=== PATIENT | male | born 1980 | race Caucasian/White ===

== ENCOUNTER → 2016-07-26 | Outpatient (CLI) | payer BC ==
--- NOTE | 2016-07-26 15:06 | RADIOLOGY REPORT PS360 ---
EXAM: LUMBAR SPINE 5 VIEWS HISTORY: LOW BACK PAIN ORDERING PHYSICIAN: Lenin Davis MD PATIENT AGE: 35 years COMPARISON: None FINDINGS: Normal alignment. No fracture or dislocation. No lytic or blastic change. There is mild degenerative disc disease at L4-L5. No facet arthritic change evident IMPRESSION: Mild degenerative disc disease L4-5
== END ==
LOC: RAD 07:21
DX: M54.5 Low back pain (principal)

== ENCOUNTER 2017-01-05 09:09 | Emergency (ER) | payer BC ==
[~2017-01-05] VITALS: Ht 182.9 cm; Wt 97.5 kg
--- OUTSIDE RECORDS SUMMARY | 2017-01-05 09:16 | External Medical Summary Rpt | CCD ---
Author Author [employer] Organization [employer] Address Unknown Phone Unavailable Purpose Continuity of Care Document - through 2016
--- OUTSIDE RECORDS SUMMARY | 2017-01-05 09:16 | External Medical Summary Rpt | CCD ---
Author Author REYMUNDO Address Unknown Phone [email or web address] Purpose Continuity of Care Document - through 2016
--- OUTSIDE RECORDS SUMMARY | 2017-01-05 09:16 | External Medical Summary Rpt | CCD ---
Author Author REYMUNDO Address Unknown Phone Purpose Continuity of Care Document - through 2016
--- OUTSIDE RECORDS SUMMARY | 2017-01-05 09:17 | External Medical Summary Rpt ---
Author Author REYMUNDO Tobias, [employer] Organization [employer] Address Unknown Phone Unavailable
--- OUTSIDE RECORDS SUMMARY | 2017-01-05 09:17 | External Medical Summary Rpt | CCD ---
Author Author , REYMUNDO DWYER Address Unknown Phone [email or web address] Immunization Name Date Rout CVX Reac Dose Comm Prov Is Faci e tion ent ider Refu lity Give sed n Hep 10-2 8 999 Hist H201 No H201 B, 9- oric ped/ al adol Info rmat ion - Sour ce Unsp ecif ied Hep 05-1 8 999 Hist H201 No H201 B, 4-20 oric ped/ 01 al adol Info rmat ion - Sour ce Unsp ecif ied Hep 04-1 8 999 Hist H201 No H201 B, 2-20 oric ped/ 01 al adol Info rmat ion - Sour ce Unsp ecif ied Td 04-1 9 999 Hist H201 No H201 (mirna 2-20 oric lt), 01 al Info adso rmat rbed ion - Sour ce Unsp ecif ied
--- OUTSIDE RECORDS SUMMARY | 2017-01-05 09:17 | External Medical Summary Rpt | CCD ---
Author Author , REYMUNDO DWYER Address Unknown Phone [email or web address] Immunization Name Date Rout CVX Reac Dose [...]
--- NOTE | 2017-01-05 09:27 | Urgent Treatment Center Report ---
See Addendum History of Present Issue Date/Time Seen by Provider 01/05/17 0915 Visit Reason Pt arrived:Walked Presenting Problem:RIGHT LOW BACK PAIN RAD DOWN RIGHT LEG BEGAN YESTERDAY, DENIES INJURY Location if Accident: Onset of symptoms date/time:/ or onset unknown for:MEDICAL HX UNKNOWN Have you (or family members/close friends) recently traveled outside the [place]? N If Yes, where/when: Have you had exposure to infectious disease within the past month? TB? Other? Specify: Here w/ mom (who is driving) c/o right sided low back pain radiating down right leg. Hx of "back strains" in the past. "Everytime I try to start getting in shape and being more active again, this happens". According to chart, saw Dr. Davis earlier this year for similiar symptoms. lumbar spine showed mild degenerative changes L4-L5. Was also treated for similiar symptoms in 2008 at which time it appears he had physical therapy. Reporting back "felt tight" last 1-2 weeks so patient has started trying to be more active. Walking more while in the [employer], stretching here and there. However yesterday, lifted push mower out of the truck. While mowing, started to notice radiating pain into right leg but continued to mow and lift mower back into truck when finished. Pain slowly worsened. Ibuprofen last night at 1999 didn't really help. Pain currently 810. primarily c/o burning sensation from right buttock radiating to right heel. "some" numbness sensation only in right foot. Able to get "somewhat" comfortable in anguiano position or while standing ( "just not too long"). Sitting is most uncomfortable. Denies urinary or bowel incontinence, weakness, saddle paresthesia, fever. Source patient Exam Limitations clinical condition (pain) ALLERGIES Coded Allergies: No Known Drug Allergies (09/21/15) History Medical History General Angina: No [place]: No Hypertension? No Hyperlipidemia? No CHF? No COPD? No Asthma? No CVA? No Seizures? No Diabetes? No GB Disease: No MRSA? No TB? No Cancer? No Immunization HX DT/Tetanus 06/23/05 Surgical Hx Previous Surgery?Y HERNIA REPAIR Social History Smoking Hx Smoker: Current Every Day Smoker Tobacco: Yes Type Cigarettes Packs/day < 1 Pack Alcohol Alcohol: No Review of Systems All Other Systems Reviewed and Negative Constitutional see HPI, denies malaise Respiratory denies shortness of breath Cardiovascular denies chest pain Gastrointestinal see HPI, denies abdominal pain, denies nausea Genitourinary see HPI. Musculoskeletal see HPI, denies joint swelling, denies neck pain Skin denies change in color, denies lesions, denies lumps Psychiatric/Neurological see HPI Physical Exam Vital Signs Vital Signs Date Time Temp Pulse Resp B/P Pulse O2 O2 Flow FiO2 Ox Delivery Rate 01/05 943 18 01/05 917 98.8 100 18 154/95 98 General Appearance moderate distress (appears uncomfortable), ambulated into clinic, slightly kyphotic positioning, hand on right buttock; resting in left anguiano position on table; slow to change positions for exam; grimicing and deep breathing w/ position changes Neck non-tender, supple, full range of motion Respiratory Status No: respiratory distress. Cardiovascular no peripheral edema Peripheral Pulses Pulses normal Yes (DP/PT) Back normal inspection, no vertebral tenderness, bowel/bladder continent, strt leg raising(R)-ABNL (15 degrees), gait abnormality, strt leg raising(L)-NML, TTP only at right SI joint, limited spinal ROM d/t pain Extremities non-tender (BLE), normal range of motion (BLE) Strength 5 Lower Ext (L), 5 Lower Ext (R) Neurologic alert, no motor/sensory deficits, oriented x 3 Reflexes Reflexes normal Yes (patellar) Skin normal color, warm/dry Medical Decision Making LABS/Meds/Orders Pt receiving controlled substance in ED? No Results/Orders Current Medication Orders Sig/Christina Start time Last Medication Dose Route Stop Time Status Admin Diphtheria/Pertussis/ 0 .STK-MED ONE 01/05 1007 DC Tetanus Vacc IM Orphenadrine Citrate 0 .STK-MED ONE 01/05 931 DC .ROUTE Ketorolac 60 MG ONCE ONE 01/05 930 DC 01/05 Tromethamine IM 01/05 Ketorolac 0 .STK-MED ONE 01/05 930 DC Tromethamine .ROUTE Orphenadrine Citrate 60 MG ONCE ONE 01/05 930 DC 01/05 IM 01/05 XRAY/CT/US XRAY/CT/US XRAY L-spine XR interpretation by reviewed by me (w/ Dr. Faustin, DAVE IRAHETA) Xray Results no acute findings Departure Departure Time of Disposition 1024 Disposition DC Home or Self Care(routine) Clinical Impression Primary Impression: Back pain with right-sided sciatica Condition STABLE Referrals Preston Russo APRN Return immediately for any new or worsening symptoms. FU with Preston on Saturday for any remaining symptoms as physical therapy may be necessary. Patient Instructions DI for Back Pain With Sciatica Additional Instructions * naproxen every 12 hours with meal as needed for pain/inflammation. * Remember you had a toradol shot, similiar anti-inflammatory in clinic so no naproxen for 6-8 hours * No additional anti-inflammatories like motrin, aleve, advil with the above amount of naproxen. You CAN still take Tylenol every 4 hours as needed if you need something more for pain. * Ice x15-20 mins 3-4 times a day for first 48 hours after the initial injury followed by moist heat x15-20 mins 3-4 times a day to affected area * Muscle relaxer every 8 hours as needed for muscle spasms but remember, it WILL cause drowsiness. You can NOT take it and drive, operate machinary or care for small children * REMEMBER you had noraflex, a similiar muscle relaxer in clinic. No additional muscle relaxer for 8 hours. * Keep this area active. No movement leads to more stiffness. However, take it easy too and avoid heavy lifting, pushing, pulling. Discharge Counseling Counseled pt/family regarding diagnosis, test results, medications/RX, home care, follow up needs Prescriptions Current Visit Scripts NAPROXEN (NAPROSYN 500MG TAB) 500 MG PO BID #14 TAB take with food Cyclobenzaprine Hcl (Flexeril) 5-10 MG PO Q8HP PRN muscle spasm #6 TAB will cause drowsiness at 7691
--- NOTE | 2017-01-05 10:05 | RADIOLOGY REPORT PS360 ---
LUMBAR SPINE 5 VIEWS HISTORY: right side low back pain w/ sciatica, lifted mower 01/04 numbness pain right leg started while mowing.. Patient Age: 36 years: Male Ordering Physician: DAFNE HERRING APRN TECHNIQUE: 5 view lumbar spine series COMPARISON :Previous 5 view lumbar spine series from 07/26/2016 FINDINGS Vertebral bodies are intact. Only scant disc space narrowing narrowing at L4/5 and L5/S1 disc again seen. Actually today's views image L4/5 more true lateral view; with this the disc space narrowing at this level is slightly less evident versus prior study. Only question Possible very early posterior ridging & spondylosis at L4/5. There is no fracture. No spondylolysis nor listhesis. The pedicles are intact. Transverse processes and SI joints unremarkable. Nonspecific bowel gas pattern with only mild to moderate stool colon most evident at right colon. Minimal small bowel gas IMPRESSION: no acute findings. No Significant change since July 2016 lumbar spine series.. Only suggestion of borderline-scant disc space narrowing L4/5 and L5/S1 again noted.
[2017-01-05] MEDS ORDERED: FLEXERIL10 MG PO (10:29)
[2017-01-05] MEDS ORDERED: NAPROSYN 500MG500 MG PO (10:29)
[2017-01-05 10:30] VITALS: BP 148/90
== END 2017-01-05 10:33 | disposition home or self-care (01) ==
LOC: UTC 09:09
DX: M54.41 Lumbago with sciatica, right side (principal); Z23 Encounter for immunization; F17.210 Nicotine dependence, cigarettes, uncomplicated

== ENCOUNTER 2017-01-13 01:03 | Emergency (ER) | payer BC ==
[~2017-01-13] VITALS: Ht 182.9 cm; Wt 90.7 kg
[~2017-01-13 01:03] MED LIST: FLEXERIL10 MG PO; NAPROSYN 500MG500 MG PO
--- NOTE | 2017-01-13 01:16 | Emergency Room Report ---
History of Present Illness Time Seen by MD Valentin Presenting Problem in Triage Pt arrived:Walked Presenting Problem:PT STATES "I HAVE MUSCLE SPASMS IN MY LOWER BACK AND I HAVE TINGLING SENSATIONS IN MY TOES. I WAS IN HERE LAST SATURDAY FOR THE SAME THING, THE GAVE ME 2 ANTIINFLAMMATORY SHOTS AND MUSCLE RELAXERS, AND SENT ME HOME, JUST SAID IT WAS MUSCLE SPASMS." Onset of symptoms date/time:01/05/17 or onset unknown for: Treatment Prior to Arrival: [employer] Provided by: Sepsis Risk Assessment: Temp: 97.9 B/P: 141/89 MAP: 106 Pulse: 86 Resp: 20 Recent fever? N Clinical Suspician of Infection? N Mental Status: 1 - Regular (Normal Baseline) Sepsis Risk:Low Sepsis Risk Have you (or family members/close friends) recently traveled outside the [place]? N If Yes, where/when: Have you had exposure to infectious disease within the past month? TB? Other? Specify: Comment Patient complains of low back pain going down his RIGHT leg with numbness in his RIGHT toes. Symptoms have been present for about 10 days. He was initially seen at the urgent treatment center and had x-rays which were unremarkable. He was treated with anti-inflammatories and muscle relaxers. He improved until the past 24 hours when his symptoms again worsened. No bowel or bladder symptoms. He feels a numbness in his RIGHT great and second toes. ALLERGIES Coded Allergies: No Known Drug Allergies (09/21/15) Home Medications Active Scripts NAPROXEN (NAPROSYN 500MG TAB) 500 MG PO BID #14 TAB Prov: 01/05/17 Cyclobenzaprine Hcl (Flexeril) 5-10 MG PO Q8HP PRN muscle spasm #6 TAB Prov: 01/05/17 History Medical History General Angina: No [place]: No Hypertension? No Hyperlipidemia? No CHF? No COPD? No Asthma? No CVA? No Seizures? No Diabetes? No GB Disease: No MRSA? No TB? No Cancer? No Immunization Hx DT/Tetanus 06/23/05 Surgical Hx Previous Surgery?Y HERNIA REPAIR Social History Smoking Hx Packs/day < 1 Pack Alcohol Alcohol: No Review of Systems All Other Systems Reviewed and Negative Constitutional denies fever Musculoskeletal back pain Psychiatric/Neurological numbness, denies weakness Physical Exam Vital Signs Vital Signs Date Time Temp Pulse Resp B/P Pulse O2 O2 Flow FiO2 Ox Delivery Rate 01/13 234 97.9 82 20 138/78 96 01/13 0233 97.9 82 20 138/78 96 01/13 0221 20 01/13 0108 97.9 86 20 141/89 96 General Appearance moderate distress, unable to achieve a comfortable position, appears in pain Respiratory Status No: respiratory distress. Cardiovascular regular rate/rhythm, normal peripheral pulses Back no vertebral tenderness Neurologic alert, decreased but present sensation in his RIGHT great and second toes., slight decrease in strength of dorsiflexion and plantar flexion of RIGHT great toe, deep tendon reflexes 2+ patella and 1+ ankle jerk bilaterally Medical Decision Making LABS/Meds/Orders Pt receiving controlled substance in ED? Yes Jigar was queried for this patient? Yes Comment [id number] 0 rxs. Results/Orders Current Medication Orders Sig/Christina Start time Last Medication Dose Route Stop Time Status Admin Hydromorphone HCl 0 .STK-MED ONE 01/13 217 DC .ROUTE Ondansetron HCl 0 .STK-MED ONE 01/13 217 DC .ROUTE Dexamethasone Sodium 0 .STK-MED ONE 01/14 216 DC Phosphate .ROUTE Dexamethasone Sodium 8 MG ONCE ONE 01/13 215 DC 01/13 Phosphate IM 01/14 216 0220 Hydromorphone HCl 2 MG ONCE ONE 01/13 215 DC 01/13 IM 01/14 216 0221 Ondansetron HCl 4 MG ONCE ONE 01/13 215 DC 01/13 IM 01/14 216 0220 Progress - The patient has a lumbar radiculopathy, likely herniated disc. Advised to follow up with primary care physician. Advised he will likely need an MRI as well as further treatment. Departure Departure Disposition DC Home or Self Care(routine) Clinical Impression Primary Impression: Lumbar radiculopathy, acute Condition STABLE Referrals Preston Russo APRN (Family) Patient Instructions DI for Herniated Disc, DI for Lumbar Radiculopathy Additional Instructions Additional instructions for BACK PAIN: See your physician as soon as possible for further evaluation. Return immediately if back pain becomes intolerable, or if fever, numbness or weakness of your legs, loss of control of your bowels or bladder. Prescriptions Current Visit Scripts OXYCODONE HCL/ACETAMINOPHEN (Percocet 5-325 MG Tablet) 1 TAB PO Q6HP PRN pain #10 TAB Prednisone (Prednisone 10MG) 10 MG PO DAILY #27 TAB 6 po on days 1-2, then decrease dose by 1 pill per day until gone ED Critical Care Critical Care No at 8558
[2017-01-13] MEDS ORDERED: PERCOCET1 TAB PO (02:23)
[2017-01-13] MEDS ORDERED: PREDNISONE 10MG10 MG PO (02:23)
[2017-01-13 02:34] VITALS: BP 138/78
--- OUTSIDE RECORDS SUMMARY | 2017-01-13 02:37 | External Medical Summary Rpt ---
Author Author RYEM[employer]DO Tobias, [employer] Organization [employer] Address Unknown Phone Unavailable
--- OUTSIDE RECORDS SUMMARY | 2017-01-13 02:37 | External Medical Summary Rpt | CCD ---
Author Author , REYMUNDO DWYER Address Unknown Phone [email or web address] Immunization Name Date Rout CVX Reac Dose Comm Prov Is Faci e tion ent ider Refu lity Give sed n Hep 10-2 8 999 Hist H201 No H201 B, 9-20 oric ped/ al adol Info rmat ion [...]
--- OUTSIDE RECORDS SUMMARY | 2017-01-13 02:37 | External Medical Summary Rpt | CCD ---
Author Author , REYMUNDO DWYER Address Unknown Phone [email or web address] Immunization Name Date Rout CVX Reac Dose [...]
--- OUTSIDE RECORDS SUMMARY | 2017-01-13 02:37 | External Medical Summary Rpt | CCD ---
Author Author REYMUNDO Address Unknown Phone [email or web address] Purpose Continuity of Care Document - through 2016
== END 2017-01-13 02:39 | disposition home or self-care (01) ==
LOC: ER 01:03
DX: M54.16 Radiculopathy, lumbar region (principal)
CPT/HCPCS: J2405